=== PATIENT | male | born 1945 | race Caucasian/White ===

== ENCOUNTER 2021-02-09 03:08 | Inpatient (IN) | payer MEDICARE ==
--- NOTE | 2021-02-09 03:30 | EDM.PDOC ---
ED HPI GENERAL MEDICAL PROBLEM - General Chief Complaint: Respiratory Problem Stated Complaint: SOB VIA [facility] Time Seen by Provider: 02/09/21 03:20 Source of Information: Reports: Patient, EMS History Limitations: Reports: No Limitations - History of Present Illness INITIAL COMMENTS - FREE TEXT/NARRATIVE: pt arrived with sob and not feeling well for the past 2-3 days. He has not spiked any sig fevers. He Has been coughing up green and yellow sputum . He has a history of smoking 1.5 packs per day. He is vacinated against covid. ! week ago he had a dot examine and he passed that. Onset: Gradual, Other (last 2-3 days. ) Duration: Hour(s): Location: Reports: Chest, Generalized Associated Symptoms: Reports: Cough, Shortness of Breath, Weakness - Related Data Allergies Allergy/AdvReac Type Severity Reaction Status Date / Time Iodinated Contrast Media Allergy Hives Verified 02/09/21 03:19 Home Meds: Home Meds Tamsulosin [Flomax] 1 cap PO DAILY 02/09/21 [History] ED ROS GENERAL - Review of Systems Review Of Systems: See Below Constitutional: Reports: Malaise, Weakness HEENT: Reports: No Symptoms Respiratory: Reports: Shortness of Breath, Wheezing, Cough, Sputum Cardiovascular: Reports: No Symptoms Endocrine: Reports: No Symptoms GI/Abdominal: Reports: No Symptoms : Reports: No Symptoms Musculoskeletal: Reports: No Symptoms Skin: Reports: No Symptoms Neurological: Reports: No Symptoms Psychiatric: Reports: Anxiety ED EXAM, GENERAL - Physical Exam Exam: See Below Free Text/Narrative:: pt arrived with sob which started about 2 days ago. He is a heavy smoker but harinder not been told that he has copd He has been very wheezy today. He has been vacinated but has not had the booster shot. Exam Limited By: No Limitations General Appearance: Alert, Anxious, Moderate Distress Ears: Normal TMs Nose: Normal Inspection Throat/Mouth: Normal Inspection Head: Atraumatic Neck: Normal Inspection Respiratory/Chest: Decreased Breath Sounds, Rhonchi, Wheezing Cardiovascular: Regular Rate, Rhythm, Tachycardia GI/Abdominal: Soft, Non-Tender (Male) Exam: Deferred Rectal (Males) Exam: Deferred Back Exam: Normal Inspection Extremities: Pedal Edema Neurological: Alert, Oriented, Normal Cognition Psychiatric: Normal Mood Course - Vital Signs Last Recorded V/S: Last Vital Signs Temp 37.7 C 02/09/21 03:14 Pulse 77 02/09/21 04:12 Resp 28 H 02/09/21 04:12 BP 145/84 H 02/09/21 04:12 Pulse Ox 95 02/09/21 04:12 - Orders/Labs/Meds Orders: Active Orders 24 hr Category Date Time Status RT Aerosol Therapy [RC] ASDIRECTED Care 02/09/21 04:37 Ordered Chest 1V Frontal [CR] Stat Exams 02/09/21 03:19 Taken UA W/MICROSCOPIC [URIN] Urgent Lab 02/09/21 03:18 Ordered Sodium Chloride 0.9% [Normal Saline] 1,000 ml Med 02/09/21 04:45 Ordered IV ASDIRECTED Sodium Chloride 0.9% [Saline Flush] Med 02/09/21 03:33 Active 10 ml FLUSH ASDIRECTED PRN Isolation [COMM] Stat Oth 02/09/21 03:18 Ordered Saline Lock Insert [OM.PC] Routine Oth 02/09/21 03:33 Ordered Medication Orders Sodium Chloride (Normal Saline) 1,000 mls @ 150 mls/hr IV ASDIRECTED KAUSHAL Sodium Chloride (Sodium Chloride 0.9% 10 Ml Syringe) 10 ml FLUSH ASDIRECTED PRN PRN Reason: Keep Vein Open Labs: Laboratory Tests 02/09/21 02/09/21 02/09/21 Range/Units 03:28 03:28 03:28 WBC 7.9 (4.5-11.0) K/uL RBC 5.19 (4.30-5.90) M/uL Hgb 16.1 H (12.0-15.0) g/dL Hct 47.9 (40.0-54.0) % MCV 92 (80-98) fL MCH 31 (27-31) pg MCHC 34 (32-36) % Plt Count 220 (150-400) K/uL Neut % (Auto) 83.6 H (36-66) % Lymph % (Auto) 8.0 L (24-44) % Spencer % (Auto) 7.7 H (2-6) % Eos % (Auto) 0.4 L (2-4) % Baso % (Auto) 0.3 (0-1) % D-Dimer, Quantitative (0.0-500.0) ng/mL Sodium 134 L (140-148) mmol/L Potassium 4.1 (3.6-5.2) mmol/L Chloride 98 L (100-108) mmol/L Carbon Dioxide 26 (21-32) mmol/L Anion Gap 14.1 H (5.0-14.0) mmol/L BUN 14 (7-18) mg/dL Creatinine 1.1 (0.8-1.3) mg/dL Est Cr Clr Drug Dosing 58.02 mL/min Estimated GFR (MDRD) > 60 (>60) Glucose 106 (74-106) mg/dL Calcium 8.1 L (8.5-10.1) mg/dL Total Bilirubin 0.5 (0.2-1.0) mg/dL AST 21 (15-37) U/L ALT 22 (12-78) U/L Alkaline Phosphatase 111 (46-116) U/L NT-Pro-B Natriuret Pep (5-450) pg/mL Total Protein 6.9 (6.4-8.2) g/dL Albumin 3.5 (3.4-5.0) g/dL Globulin 3.4 (2.3-3.5) g/dL Albumin/Globulin Ratio 1.0 L (1.2-2.2) Influenza Type A RNA Negative (NEGATIVE) RSV RNA (INAAT) Positive H (NEGATIVE) Influenza Type B RNA Negative (NEGATIVE) SARS-CoV-2 RNA (ELLE) Negative (NEGATIVE) 02/09/21 02/09/21 Range/Units 03:28 03:41 WBC (4.5-11.0) K/uL RBC (4.30-5.90) M/uL Hgb (12.0-15.0) g/dL Hct (40.0-54.0) % MCV (80-98) fL MCH (27-31) pg MCHC (32-36) % Plt Count (150-400) K/uL Neut % (Auto) (36-66) % Lymph % (Auto) (24-44) % Spencer % (Auto) (2-6) % Eos % (Auto) (2-4) % Baso % (Auto) (0-1) % D-Dimer, Quantitative 668.70 H (0.0-500.0) ng/mL Sodium (140-148) mmol/L Potassium (3.6-5.2) mmol/L Chloride (100-108) mmol/L Carbon Dioxide (21-32) mmol/L Anion Gap (5.0-14.0) mmol/L BUN (7-18) mg/dL Creatinine (0.8-1.3) mg/dL Est Cr Clr Drug Dosing mL/min Estimated GFR (MDRD) (>60) Glucose (74-106) mg/dL Calcium (8.5-10.1) mg/dL Total Bilirubin (0.2-1.0) mg/dL AST (15-37) U/L ALT (12-78) U/L Alkaline Phosphatase (46-116) U/L NT-Pro-B Natriuret Pep 409 (5-450) pg/mL Total Protein (6.4-8.2) g/dL Albumin (3.4-5.0) g/dL Globulin (2.3-3.5) g/dL Albumin/Globulin Ratio (1.2-2.2) Influenza Type A RNA (NEGATIVE) RSV RNA (INAAT) (NEGATIVE) Influenza Type B RNA (NEGATIVE) SARS-CoV-2 RNA (ELLE) (NEGATIVE) Meds: Medications Generic Name Dose Route Start Last Admin Trade Name Freq PRN Reason Stop Dose Admin Sodium Chloride 1,000 mls @ 150 mls/hr 02/09/21 04:45 Normal Saline IV ASDIRECTED KAUSHAL Sodium Chloride 10 ml 02/09/21 03:33 Sodium Chloride 0.9% 10 Ml Syringe FLUSH ASDIRECTED PRN Keep Vein Open Discontinued Medications Generic Name Dose Route Start Last Admin Trade Name Freq PRN Reason Stop Dose Admin Albuterol/Ipratropium 3 ml 02/09/21 04:37 Albuterol/Ipratropium 3.0-0.5 Mg/3 Ml Neb Soln NEB 02/09/21 04:38 ONETIME ONE Methylprednisolone Sodium Succinate 125 mg 02/09/21 04:38 Methylprednisolone Sodium Succinate 125 Mg/2 Ml Sdv IVPUSH 02/09/21 04:39 ONETIME ONE - Re-Assessments/Exams Free Text/Narrative Re-Assessment/Exam: 02/09/21 03:49 pt has a wbc of 7,900. He is full vacinated. his chest xray shows chronic changes. 02/09/21 04:39 pt is covid neg. but rsv positive. Will use a neb and solumedrol. He will need to be admitted because he is not maintaining his o2 sats. Departure - Departure Time of Disposition: 04:40 Disposition: Admitted As Inpatient 66 Condition: Fair Clinical Impression: RSV (respiratory syncytial virus infection), Hypoxia - Discharge Information Referrals: Channing Bloom MD [Primary Care Provider] - Forms: ED Department Discharge Care Plan Goals: admit to Dr Horner. Sepsis Event Note (ED) - Evaluation Sepsis Screening Result: No Definite Risk - Focused Exam Vital Signs: Vital Signs Temp Pulse Resp BP Pulse Ox 02/09/21 04:12 77 28 H 145/84 H 95 02/09/21 03:43 88 28 H 156/82 H 94 L 02/09/21 03:14 37.7 C 102 H 26 H 181/98 H 82 L - My Orders Last 24 Hours: My Active Orders 02/09/21 03:18 UA W/MICROSCOPIC [URIN] Urgent Isolation [COMM] Stat 02/09/21 03:19 Chest 1V Frontal [CR] Stat 02/09/21 03:33 Sodium Chloride 0.9% [Saline Flush] 10 ml FLUSH ASDIRECTED PRN Saline Lock Insert [OM.PC] Routine 02/09/21 04:37 RT Aerosol Therapy [RC] ASDIRECTED 02/09/21 04:45 Sodium Chloride 0.9% [Normal Saline] 1,000 ml IV ASDIRECTED - Assessment/Plan Last 24 Hours: My Active Orders 02/09/21 03:18 UA W/MICROSCOPIC [URIN] Urgent Isolation [COMM] Stat 02/09/21 03:19 Chest 1V Frontal [CR] Stat 02/09/21 03:33 Sodium Chloride 0.9% [Saline Flush] 10 ml FLUSH ASDIRECTED PRN Saline Lock Insert [OM.PC] Routine 02/09/21 04:37 RT Aerosol Therapy [RC] ASDIRECTED 02/09/21 04:45 Sodium Chloride 0.9% [Normal Saline] 1,000 ml IV ASDIRECTED
[2021-02-09] MEDS ORDERED: Sodium Chloride 0.9% 10 ML Syringe FLUSH PRN (03:33)
[2021-02-09 04:07] LABS: CORONAVIRUS COVID-19 NAA NEGATIVE (NEGATIVE)
[2021-02-09] MEDS ORDERED: Albuterol/Ipratropium 3.0-0.5 MG/3 ML Neb Soln NEB ONE (04:37)
[2021-02-09] MEDS ORDERED: methylPREDNISolone Sodium Succinate 125 MG/2 ML SDV IVPUSH ONE (04:38)
[2021-02-09] MEDS ORDERED: Sodium Chloride 0.9% 1,000 ML IV SCH (04:45)
--- NOTE | 2021-02-09 04:56 | CRLCR ---
For Patients: As a result of the Century Cures Act, medical imaging exams and procedure reports are released immediately into your electronic medical record. You may view this report before your referring provider. If you have questions, please contact your health care provider. INDICATION: Shortness of breath. TECHNIQUE: Chest 1 view. COMPARISON: None. FINDINGS: Cardiovascular and mediastinum: Heart size and vasculature are normal in caliber and appearance. Lungs and pleural spaces: Lungs are clear. No sign of infiltrate or mass. No sign of pleural effusion. No pneumothorax. Bones and soft tissues: No significant findings. IMPRESSION: No acute or significant findings. Dictated by Rickie Ohara MD @ 02/09/2021 4:55:10 AM (Electronically Signed)
[2021-02-09] MEDS ORDERED: Albuterol/Ipratropium 3.0-0.5 MG/3 ML Neb Soln NEB PRN (05:14)
[2021-02-09] MEDS ORDERED: Acetaminophen 325 MG Tab PO PRN (05:14)
[2021-02-09] MEDS ORDERED: cefTRIAXone 1 GM Vial IM SCH (05:15)
[2021-02-09] MEDS ORDERED: Albuterol/Ipratropium 4 GM Inhalation Spray INH PRN (05:38)
[2021-02-09] MEDS ORDERED: cefTRIAXone 1 GM Vial IV SCH (06:03)
--- NOTE | 2021-02-09 06:58 | HP ---
IDENTIFYING DATA: Capo Huddleston is a 75-year-old male from [place]. CHIEF COMPLAINT: Short of breath. HISTORY OF PRESENT ILLNESS: Adult male who reports general good state of health. Has an approximate 2-day history of developing respiratory symptoms with congestion, cough, scant sputum production, and increased shortness of breath. Symptoms worsened significantly overnight and he presented to the hospital this morning for evaluation. He has a longstanding history of tobacco use of 1-1/2 packs per day, though denies previous diagnosed history of obstructive pulmonary disease or limiting respiratory symptoms. He has received his COVID vaccine series. Has not yet received his annual influenza vaccine. It was noted he was hunting with extended family over the weekend. Two adult sons had similar acute respiratory infections with potential exposure to these individuals. PAST MEDICAL HISTORY: Previous surgeries include inguinal herniorrhaphy in the remote past and appendectomy 2 years ago. Additionally, he has a history of BPH with weakened urinary stream, managed with use of tamsulosin 0.4 mg daily. No other chronic health problems reported. HABITS: Tobacco use of 1-1/2 packs per day. Caffeine intake averages 2 large mugs of coffee daily. Alcohol use estimated at 10 drinks weekly. 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 SOCIAL HISTORY: . A full-time employee for a [employer]. Working as a long distance hauler. Engages in moderately strenuous physical activities at home. Denying significant restrictions or limitations. No known recent COVID exposure reporting his adult sons tested negative for COVID. FAMILY HISTORY: As above, otherwise noncontributory. REVIEW OF SYSTEMS: NEUROLOGIC: Does have recognized decline in auditory acuity. Glasses are worn for far vision and reading. No history of stroke, seizures, focal weakness, or paresthesias. CARDIAC: Denies hypertension, diabetes, congenital heart disease, rheumatic fever, [place], chest pain, palpitations, or congestive heart failure. No dependent edema. RESPIRATORY: As above. No hemoptysis. Scant sputum production reported. No sore throat, nasal congestion, or coryza. GI: Denies chronic dyspepsia, nausea, emesis, altered appetite, change in smell or taste, hepatobiliary disease, or bowel changes. : Rises 2 to 4 times nightly to void. No urinary incontinence. Denies chronic renal disease. MUSCULOSKELETAL: Without arthralgias. PHYSICAL EXAMINATION: GENERAL: Appearance is that of an adult male in mild distress secondary to respiratory presentation. VITAL SIGNS: Initial vitals, temperature 37.7 degrees centigrade, pulse 77, respiratory rate 28 with O2 sats initially in the low 80s, rising to 95% with supplemental oxygen at 4 L by nasal cannula, blood pressure 145/84. HEENT: Hearing is slightly diminished. Canals and TMs are normal. Pupils reactive to light. Sclerae anicteric. No oropharyngeal lesions. No facial asymmetry. Speech is clear. NECK: No adenopathy, thyromegaly, or JVD. Brisk carotid pulses. No bruits. LUNGS: Symmetrical, tachypneic. Prominent bilateral expiratory wheezes and rhonchi. No rales are heard today. HEART: Regular without murmurs or gallops. Normal S1 and S2. ABDOMEN: Obese, soft, nontender, nondistended. Active sounds. No obvious organomegaly. No CVA pain, guarding, or tenderness. Good femoral pulses. : Omitted. RECTAL: Omitted. EXTREMITIES: No pitting edema. SKIN: Warm, pink, and dry. No ischemic skin changes. Good radial and posterior tibial pulses noted. DIAGNOSTIC DATA: Chest x-ray on admission, interstitial perihilar changes noted. LABORATORY DATA: WBC 7.9, hemoglobin 16.1, hematocrit 47.9, platelet count 220,000. Sodium 134, potassium 4.1, creatinine 1.1, GFR greater than 60. Glucose 106. Liver functions within normal range. Influenza screen negative as is COVID testing. RSV is positive. D- dimer moderately elevated at 668. BNP 409. IMPRESSION: 1. Acute respiratory infection, positive respiratory syncytial virus testing, negative coronavirus disease and influenza. 2. Chronic tobacco use of 1-1/2 packs per day. PLAN: With the patient's presenting hypoxia, initial treatments with oxygen and bronchodilator therapies have been provided as has first dose of IV steroids. We will continue with Solu-Medrol administered on a t.i.d. schedule. Provide Combivent metered dose inhaler q.4 hours as needed. We will empirically initiate antibiotic therapy for potential community-acquired pneumonia with Rocephin. Anticipate repeat COVID testing in 2 days to include the possibility of early false negatives. Full code status. Regular diet and activity as tolerated in room will be allowed during stay. No other acute or chronic health problems currently identified. Camilo Horner MD /[id number]
[2021-02-09] MEDS ORDERED: cefTRIAXone 1 GM in Sodium Chloride 0.9% 50 ML IV SCH (07:00)
[2021-02-09] MEDS: cefTRIAXone 1 GM in Sodium Chloride 0.9% 50 ML IV SCH (08:16)
[2021-02-09] MEDS: methylPREDNISolone Sodium Succinate 125 MG/2 ML SDV IVPUSH SCH ×2 (13:13→21:08)
[2021-02-09] MEDS ORDERED: guaiFENesin/Dextromethorphan 100-10 MG/5 ML Soln 10 ML Cup PO PRN (13:58)
[2021-02-09] MEDS ORDERED: Benzonatate 100 MG Cap PO PRN (13:58)
[2021-02-09] MEDS ORDERED: methylPREDNISolone Sodium Succinate 125 MG/2 ML SDV IVPUSH SCH (14:00)
[2021-02-09] MEDS: Albuterol/Ipratropium 3.0-0.5 MG/3 ML Neb Soln NEB SCH ×2 (14:32→21:08)
[2021-02-09] MEDS: Tamsulosin 0.4 MG Cap.ER PO SCH (14:41)
[2021-02-09] MEDS ORDERED: Albuterol 0.083% 2.5 MG/3 ML Neb Soln NEB PRN (16:28)
[2021-02-09] MEDS ORDERED: Nicotine 14 MG/24 Hr Patch TRDERM ONE (17:00)
[2021-02-10] MEDS: methylPREDNISolone Sodium Succinate 125 MG/2 ML SDV IVPUSH SCH ×3 (05:45→22:18)
[2021-02-10] MEDS ORDERED: cefTRIAXone 1 GM in Sodium Chloride 0.9% 50 ML IV SCH (07:00)
[2021-02-10] MEDS: Albuterol/Ipratropium 3.0-0.5 MG/3 ML Neb Soln NEB SCH ×4 (07:14→22:10)
[2021-02-10] MEDS: Nicotine 14 MG/24 Hr Patch TRDERM SCH (09:40)
[2021-02-10] MEDS: Tamsulosin 0.4 MG Cap.ER PO SCH (09:40)
[2021-02-10] MEDS: cefTRIAXone 1 GM in Sodium Chloride 0.9% 50 ML IV SCH (09:42)
--- NOTE | 2021-02-10 13:09 | PCM.PN ---
- General Info Date of Service: 02/10/21 Subjective Update: No acute events overnight. Patient feels less short of breath today. He has not noticed any wheezing. He is down to 4 L of supplemental oxygen this morning. Appetite has improved. Cough has decreased. No significant sputum. No fevers. Functional Status: Reports: Pain Controlled, Tolerating Diet - Review of Systems Pulmonary: Reports: Shortness of Breath, Cough - Patient Data Vitals - Most Recent: Last Vital Signs Temp 36.5 C 02/10/21 11:00 Pulse 79 02/10/21 11:00 Resp 18 02/10/21 11:00 BP 149/66 H 02/10/21 11:00 Pulse Ox 91 L 02/10/21 11:00 Weight - Most Recent: 96.615 kg I&O - Last 24 Hours: Intake & Output 02/09/21 02/10/21 02/10/21 22:59 06:59 14:59 Intake Total 270 300 730 Balance 270 300 730 Med Orders - Current: Current Medications Acetaminophen (Acetaminophen 325 Mg Tab) 650 mg PO Q4H PRN PRN Reason: Fever Albuterol (Albuterol 0.083% 2.5 Mg/3 Ml Neb Soln) 2.5 mg NEB Q2H PRN PRN Reason: shortness of breath/wheezing Last Admin: 02/09/21 16:39 Dose: 2.5 mg Documented by: Albuterol/Ipratropium (Albuterol/Ipratropium 3.0-0.5 Mg/3 Ml Neb Soln) 3 ml NEB QIDRT [facility] Last Admin: 02/10/21 11:09 Dose: 3 ml Documented by: Benzonatate (Benzonatate 100 Mg Cap) 100 mg PO Q8H PRN PRN Reason: Cough Guaifenesin/Dextromethorphan (Guaifenesin/Dextromethorphan 100-10 Mg/5 Ml Soln 10 Ml Cup) 10 ml PO Q4H PRN PRN Reason: Cough Ceftriaxone Sodium 1 gm/ (Sodium Chloride) 50 mls @ 100 mls/hr IV Q24H [facility] Last Admin: 02/10/21 09:42 Dose: 100 mls/hr Documented by: Methylprednisolone Sodium Succinate (Methylprednisolone Sodium Succinate 125 Mg/2 Ml Sdv) 62.5 mg IVPUSH Q8HR [facility] Last Admin: 02/10/21 05:45 Dose: 62.5 mg Documented by: Nicotine (Nicotine 14 Mg/24 Hr Patch) 14 mg TRDERM DAILY [facility] Last Admin: 02/10/21 09:40 Dose: 14 mg Documented by: Sodium Chloride (Sodium Chloride 0.9% 10 Ml Syringe) 10 ml FLUSH ASDIRECTED PRN PRN Reason: Keep Vein Open Last Admin: 02/09/21 05:04 Dose: 10 ml Documented by: Tamsulosin HCl (Tamsulosin 0.4 Mg Cap.Er) 0.4 mg PO DAILY [facility] Last Admin: 02/10/21 09:40 Dose: 0.4 mg Documented by: Discontinued Medications Albuterol/Ipratropium (Albuterol/Ipratropium 3.0-0.5 Mg/3 Ml Neb Soln) 3 ml NEB ONETIME ONE Stop: 02/09/21 04:38 Last Admin: 02/09/21 04:49 Dose: 3 ml Documented by: Albuterol/Ipratropium (Albuterol/Ipratropium 3.0-0.5 Mg/3 Ml Neb Soln) 3 ml NEB Q4H PRN PRN Reason: Dyspnea Albuterol/Ipratropium (Albuterol/Ipratropium 4 Gm Inhalation [place]) 0 gm INH Q4H PRN PRN Reason: Dyspnea Last Admin: 02/09/21 11:18 Dose: 1 puff Documented by: Ceftriaxone Sodium (Ceftriaxone 1 Gm Vial) 1 gm IM Q24H [facility] Last Admin: 02/09/21 06:05 Dose: Not Given Documented by: Ceftriaxone Sodium (Ceftriaxone 1 Gm Vial) 1 gm IV Q24H [facility] Last Admin: 02/09/21 06:05 Dose: Not Given Documented by: Sodium Chloride (Normal Saline) 1,000 mls @ 150 mls/hr IV ASDIRECTED [facility] Last Admin: 02/09/21 04:49 Dose: 150 mls/hr Documented by: Ceftriaxone Sodium 1 gm/ (Sodium Chloride) 50 mls @ 100 mls/hr IV Q24H [facility] Ceftriaxone Sodium 1 gm/ (Sodium Chloride) 50 mls @ 100 mls/hr IV Q24H [facility] Methylprednisolone Sodium Succinate (Methylprednisolone Sodium Succinate 125 Mg/2 Ml Sdv) 125 mg IVPUSH ONETIME ONE Stop: 02/09/21 04:39 Last Admin: 02/09/21 04:49 Dose: 125 mg Documented by: Methylprednisolone Sodium Succinate (Methylprednisolone Sodium Succinate 125 Mg/2 Ml Sdv) 125 mg IVPUSH Q8HR KAUSHAL Nicotine (Nicotine 14 Mg/24 Hr Patch) 14 mg TRDERM ONETIME ONE Stop: 02/09/21 17:01 Last Admin: 02/09/21 16:39 Dose: 14 mg Documented by: - Exam Quality Assessment: Supplemental Oxygen General: Alert, Oriented, Cooperative, No Acute Distress Lungs: Normal Respiratory Effort, Crackles (few right mid lung ), Rhonchi (left mid and upper lung). No: Wheezing Cardiovascular: Regular Rate, Regular Rhythm GI/Abdominal Exam: Soft, No Distention Extremities: No Pedal Edema. No: Increased Warmth Skin: Warm, Dry Psy/Mental Status: Alert, Normal Affect - Patient Data Result Diagrams: 02/09/21 03:28 02/09/21 03:28 Sepsis Event Note - Evaluation Sepsis Screening Result: No Definite Risk - Focused Exam Vital Signs: Vital Signs Temp Pulse Resp BP Pulse Ox 02/10/21 11:00 36.5 C 79 18 149/66 H 91 L 02/10/21 07:47 35.3 C L 69 18 182/77 H 93 L 02/10/21 07:18 95 02/10/21 03:07 35.8 C L 58 L 18 143/71 H 93 L 02/10/21 01:37 93 L - Problem List Review Problem List Initiated/Reviewed/Updated: Yes - My Orders Last 24 Hours: My Active Orders 02/09/21 13:58 Benzonatate [Tessalon Perles] 100 mg PO Q8H PRN Dextromethorphan/guaiFENesin [Robitussin DM] 10 ml PO Q4H PRN 02/09/21 13:59 Convert IV to Saline Lock [OM.PC] Routine 02/09/21 14:00 Tamsulosin [Flomax] 0.4 mg PO DAILY methylPREDNISolone Sod Succ [Solu-MEDROL] 62.5 mg IVPUSH Q8HR 02/09/21 15:00 Albuterol/Ipratropium [DuoNeb 3.0-0.5 MG/3 ML] 3 ml NEB QIDRT 02/09/21 16:28 Albuterol [Proventil Neb Soln] 2.5 mg NEB Q2H PRN 02/09/21 19:21 SCD [Sequential Compression Device] [OM.PC] Routine 02/10/21 09:00 Nicotine [Habitrol] 14 mg TRDERM DAILY 02/11/21 08:00 predniSONE 40 mg PO WITHBREAKFAST - Plan Plan:: ASSESSMENT AND PLAN - Acute RSV bronchitis-complicated by acute respiratory failure with hypoxia and COPD exacerbation. Still hypoxic but slowly improving. Wheezing has resolved. Tolerating medication so far. -Continue steroids today, transition to oral prednisone tomorrow -Discontinue antibiotics -Scheduled and as needed nebulizers -Continue isolation precautions for RSV -Supplement oxygen, wean as able Essential hypertension-some ups and downs with his blood pressure but overall control is acceptable. -Continue home medications Tobacco dependence-longstanding smoker. -Encourage cessation Maintenance issues - -DVT prophylaxis-enoxaparin -GI prophylaxis-not indicated -Nutrition-regular Disposition -I anticipate discharge home after the hospital stay Dion Ceballos M.D.
[2021-02-11] MEDS: Albuterol/Ipratropium 3.0-0.5 MG/3 ML Neb Soln NEB SCH ×4 (07:24→21:58)
[2021-02-11] MEDS: Tamsulosin 0.4 MG Cap.ER PO SCH (08:12)
[2021-02-11] MEDS: Nicotine 14 MG/24 Hr Patch TRDERM SCH (08:12)
[2021-02-11] MEDS: predniSONE 20 MG Tab PO SCH (08:12)
--- NOTE | 2021-02-11 13:22 | PCM.PN ---
- General Info Date of Service: 02/11/21 Subjective Update: No acute events overnight. We have seen a steady improvement in his respiratory status. He was weaned down to 1 L of oxygen this morning. Symptomatically he i s feeling better with less shortness of breath. Cough is minimal. He has not noticed any wheezing. He feels he is breathing much more comfortably. Appetite is good. Strength improving. Functional Status: Reports: Pain Controlled, Tolerating Diet - Review of Systems General: Denies: Fever - Patient Data Vitals - Most Recent: Last Vital Signs Temp 36.5 C 02/11/21 11:00 Pulse 61 02/11/21 11:00 Resp 18 02/11/21 11:00 BP 144/80 H 02/11/21 11:00 Pulse Ox 92 L 02/11/21 12:14 Weight - Most Recent: 96.615 kg I&O - Last 24 Hours: Intake & Output 02/10/21 02/11/21 02/11/21 22:59 06:59 14:59 Intake Total 840 1370 Balance 840 1370 Med Orders - Current: Current Medications Acetaminophen (Acetaminophen 325 Mg Tab) 650 mg PO Q4H PRN PRN Reason: Fever Albuterol (Albuterol 0.083% 2.5 Mg/3 Ml Neb Soln) 2.5 mg NEB Q2H PRN PRN Reason: shortness of breath/wheezing Last Admin: 02/09/21 16:39 Dose: 2.5 mg Documented by: Albuterol/Ipratropium (Albuterol/Ipratropium 3.0-0.5 Mg/3 Ml Neb Soln) 3 ml NEB QIDRT [facility] Last Admin: 02/11/21 10:46 Dose: 3 ml Documented by: Benzonatate (Benzonatate 100 Mg Cap) 100 mg PO Q8H PRN PRN Reason: Cough Guaifenesin/Dextromethorphan (Guaifenesin/Dextromethorphan 100-10 Mg/5 Ml Soln 10 Ml Cup) 10 ml PO Q4H PRN PRN Reason: Cough Nicotine (Nicotine 14 Mg/24 Hr Patch) 14 mg TRDERM DAILY [facility] Last Admin: 02/11/21 08:12 Dose: 14 mg Documented by: Prednisone (Prednisone 20 Mg Tab) 40 mg PO WITHBREAKFAST [facility] Last Admin: 02/11/21 08:12 Dose: 40 mg Documented by: Sodium Chloride (Sodium Chloride 0.9% 10 Ml Syringe) 10 ml FLUSH ASDIRECTED PRN PRN Reason: Keep Vein Open Last Admin: 02/09/21 05:04 Dose: 10 ml Documented by: Tamsulosin HCl (Tamsulosin 0.4 Mg Cap.Er) 0.4 mg PO DAILY [facility] Last Admin: 02/11/21 08:12 Dose: 0.4 mg Documented by: Discontinued Medications Albuterol/Ipratropium (Albuterol/Ipratropium 3.0-0.5 Mg/3 Ml Neb Soln) 3 ml NEB ONETIME ONE Stop: 02/09/21 04:38 Last Admin: 02/09/21 04:49 Dose: 3 ml Documented by: Albuterol/Ipratropium (Albuterol/Ipratropium 3.0-0.5 Mg/3 Ml Neb Soln) 3 ml NEB Q4H PRN PRN Reason: Dyspnea Albuterol/Ipratropium (Albuterol/Ipratropium 4 Gm Inhalation [place]) 0 gm INH Q4H PRN PRN Reason: Dyspnea Last Admin: 02/09/21 11:18 Dose: 1 puff Documented by: Ceftriaxone Sodium (Ceftriaxone 1 Gm Vial) 1 gm IM Q24H [facility] Last Admin: 02/09/21 06:05 Dose: Not Given Documented by: Ceftriaxone Sodium (Ceftriaxone 1 Gm Vial) 1 gm IV Q24H [facility] Last Admin: 02/09/21 06:05 Dose: Not Given Documented by: Sodium Chloride (Normal Saline) 1,000 mls @ 150 mls/hr IV ASDIRECTED [facility] Last Admin: 02/09/21 04:49 Dose: 150 mls/hr Documented by: Ceftriaxone Sodium 1 gm/ (Sodium Chloride) 50 mls @ 100 mls/hr IV Q24H [facility] Ceftriaxone Sodium 1 gm/ (Sodium Chloride) 50 mls @ 100 mls/hr IV Q24H [facility] Ceftriaxone Sodium 1 gm/ (Sodium Chloride) 50 mls @ 100 mls/hr IV Q24H [facility] Last Admin: 02/10/21 09:42 Dose: 100 mls/hr Documented by: Methylprednisolone Sodium Succinate (Methylprednisolone Sodium Succinate 125 Mg/2 Ml Sdv) 125 mg IVPUSH ONETIME ONE Stop: 02/09/21 04:39 Last Admin: 02/09/21 04:49 Dose: 125 mg Documented by: Methylprednisolone Sodium Succinate (Methylprednisolone Sodium Succinate 125 Mg/2 Ml Sdv) 125 mg IVPUSH Q8HR [facility] Methylprednisolone Sodium Succinate (Methylprednisolone Sodium Succinate 125 Mg/2 Ml Sdv) 62.5 mg IVPUSH Q8HR [facility] Stop: 02/11/21 04:00 Last Admin: 02/10/21 22:18 Dose: 62.5 mg Documented by: Nicotine (Nicotine 14 Mg/24 Hr Patch) 14 mg TRDERM ONETIME ONE Stop: 02/09/21 17:01 Last Admin: 02/09/21 16:39 Dose: 14 mg Documented by: - Exam Quality Assessment: No: Supplemental Oxygen General: Alert, Oriented, Cooperative, No Acute Distress Lungs: Normal Respiratory Effort, Crackles (rare right lower lung ), Wheezing (rare right lower lung ) Cardiovascular: Regular Rate, Regular Rhythm GI/Abdominal Exam: Soft, No Distention Extremities: No Pedal Edema. No: Increased Warmth Skin: Warm, Dry Psy/Mental Status: Alert, Normal Affect - Patient Data Result Diagrams: 02/09/21 03:28 02/09/21 03:28 Sepsis Event Note - Evaluation Sepsis Screening Result: No Definite Risk - Focused Exam Vital Signs: Vital Signs Temp Pulse Resp BP Pulse Ox 02/11/21 12:14 92 L 02/11/21 11:00 36.5 C 61 18 144/80 H 92 L 02/11/21 10:47 74 02/11/21 07:30 36.3 C 62 18 165/81 H 96 02/11/21 07:25 68 02/11/21 03:00 35.4 C L 62 18 163/77 H 93 L - Problem List Review Problem List Initiated/Reviewed/Updated: Yes - My Orders Last 24 Hours: My Active Orders 02/11/21 08:00 predniSONE 40 mg PO WITHBREAKFAST - Plan Plan:: ASSESSMENT AND PLAN - Acute RSV bronchitis-complicated by acute respiratory failure with hypoxia and COPD exacerbation. Slowly improving. Tolerating treatment. -Continue prednisone (day 3) -Scheduled and as needed nebulizers -Continue isolation precautions for RSV -Supplement oxygen, wean as able Essential hypertension-some ups and downs with his blood pressure but overall control is acceptable. -Continue home medications Tobacco dependence-longstanding smoker. -Encourage cessation Maintenance issues - -DVT prophylaxis-enoxaparin -GI prophylaxis-not indicated -Nutrition-regular Disposition -I anticipate discharge home after the hospital stay, likely tomorrow if stable overnight Dion Ceballos M.D.
[2021-02-12] MEDS: Albuterol/Ipratropium 3.0-0.5 MG/3 ML Neb Soln NEB SCH ×2 (07:11→10:41)
[2021-02-12] MEDS: predniSONE 20 MG Tab PO SCH (07:43)
[2021-02-12] MEDS: Nicotine 14 MG/24 Hr Patch TRDERM SCH (09:07)
[2021-02-12] MEDS: Tamsulosin 0.4 MG Cap.ER PO SCH (09:07)
--- NOTE | 2021-02-12 10:58 | PCM.DCSUM1 ---
Discharge Summary - Hospital Course Brief History: 75-year-old male with history of tobacco dependence who presented with cough, shortness of breath and weakness. He was admitted for management of RSV bronchitis with a COPD exacerbation and hypoxic respiratory failure. Diagnosis: Stroke: No - Discharge Data Discharge Date: 02/12/21 Discharge Disposition: Home, Self-Care 01 Condition: Good - Referral to Home Health Primary Care Physician: Channing Bloom MD - Discharge Diagnosis/Problem(s) (1) COPD with acute exacerbation SNOMED Code(s): 679146437 ICD Code: J44.1 - CHRONIC OBSTRUCTIVE PULMONARY DISEASE W (ACUTE) EXACERBATION Status: Acute (2) RSV (respiratory syncytial virus infection) SNOMED Code(s): 85457987 ICD Code: B97.4 - RESPIRATORY SYNCYTIAL VIRUS CAUSING DISEASES CLASSD ELSWHR Status: Acute (3) Tobacco dependence SNOMED Code(s): 16409233 ICD Code: F17.200 - NICOTINE DEPENDENCE, UNSPECIFIED, UNCOMPLICATED Status: Chronic - Patient Summary/Data Hospital Course: Capo presented to the emergency room with increasing cough, shortness of breath and weakness. Work-up in the emergency room suggested acute respiratory failure with hypoxia. Viral testing was positive for RSV and negative for COVID-19. Chest x-ray did not show any acute infiltrates. Patient was admitted to the hospital for management of RSV bronchitis and a COPD exacerbation. He was started on IV steroids. Initially he was started on IV antibiotics as well. Over the first 24 hours we did see improvement in his oxygenation. Were able to wean his supplemental oxygen down from more than 6 L down to 4 to 5 L. Symptomatically he was feeling better but still had a fair amount of wheezing. We did continue antibiotics for about the first 36 hours but then they were discontinued when cultures failed to reveal a bacterial cause and it was felt that his COPD exacerbation was related just to the RSV infection. He had further clinical improvement with resolution of his wheezing. We are able to wean down the supplemental oxygen and eventually wean him off of the oxygen. Clinically he feels much better. He was able to walk without any respiratory limitations. He has felt better each day. He feels well enough to go home at this time. He has completed 4 days of high-dose steroids. His wheezing has resolved so we are going to avoid any additional steroids at the time of discharge. He was not interested in any cough suppressants at the time of discharge. He will be following up as needed if symptoms do not continue to get better or if they get worse. Patient was interested in setting up pulmonary function testing to get a formal diagnosis of COPD if it is present. He is interested in completing this in March of next year, about 2 months from now. Outpatient orders were completed prior to his discharge. He will be following up with his primary care provider after he has completed this test. - Patient Instructions Diet: Regular Diet as Tolerated Activity: As Tolerated Driving: May Drive Today Showering/Bathing: May Shower Other/Special Instructions: 1. You were in the hospital for management of an RSV infection of your upper respiratory tract that resulted in an exacerbation of COPD. Your condition has been improving with steroid therapy as well as bronchodilator therapy and supplemental oxygen. There is no additional therapy needed at this time. You may increase your activity as tolerated. I would encourage you to cut down and hopefully eventually quit smoking. This can help improve your lung function and reduce your risk of cardiovascular disease as well as a variety of cancers. 2. I have completed paperwork for pulmonary function testing. This information will be passed along to the respiratory therapy folks and they will contact you to schedule this. It is reasonable to wait until you have an opportunity in March to complete this so you have time to recover from your current infection completely. - Discharge Plan *PRESCRIPTION DRUG MONITORING PROGRAM REVIEWED*: Not Applicable *COPY OF PRESCRIPTION DRUG MONITORING REPORT IN PATIENT BEBO: Not Applicable Tobacco Cessation Medication: Prescription Refused Home Medications: Home Meds Tamsulosin [Flomax] 1 cap PO DAILY 02/09/21 [History] Patient Handouts: Hypoxia, Fall Prevention in the Home, Adult, [id number], Respiratory Syncytial Virus Infection, Adult Referrals: Channing Bloom MD [Primary Care Provider] - (f/u as needed ) - Discharge Summary/Plan Comment DC Time >30 min.: No Total # of Minutes for Discharge Time: 25 - Patient Data Vitals - Most Recent: Last Vital Signs Temp 36.6 C 02/12/21 07:00 Pulse 59 L 02/12/21 07:00 Resp 16 02/12/21 07:00 BP 172/89 H 02/12/21 07:00 Pulse Ox 93 L 02/12/21 07:49 Weight - Most Recent: 96.615 kg I&O - Last 24 hours: Intake & Output 02/11/21 02/12/21 02/12/21 22:59 06:59 14:59 Intake Total 880 740 Balance 880 740 Med Orders - Current: Current Medications Acetaminophen (Acetaminophen 325 Mg Tab) 650 mg PO Q4H PRN PRN Reason: Fever Albuterol (Albuterol 0.083% 2.5 Mg/3 Ml Neb Soln) 2.5 mg NEB Q2H PRN PRN Reason: shortness of breath/wheezing Last Admin: 02/09/21 16:39 Dose: 2.5 mg Documented by: Albuterol/Ipratropium (Albuterol/Ipratropium 3.0-0.5 Mg/3 Ml Neb Soln) 3 ml NEB QIDRT [facility] Last Admin: 02/12/21 10:41 Dose: 3 ml Documented by: Benzonatate (Benzonatate 100 Mg Cap) 100 mg PO Q8H PRN PRN Reason: Cough Guaifenesin/Dextromethorphan (Guaifenesin/Dextromethorphan 100-10 Mg/5 Ml Soln 10 Ml Cup) 10 ml PO Q4H PRN PRN Reason: Cough Nicotine (Nicotine 14 Mg/24 Hr Patch) 14 mg TRDERM DAILY [facility] Last Admin: 02/12/21 09:07 Dose: 14 mg Documented by: Prednisone (Prednisone 20 Mg Tab) 40 mg PO WITHBREAKFAST [facility] Last Admin: 02/12/21 07:43 Dose: 40 mg Documented by: Sodium Chloride (Sodium Chloride 0.9% 10 Ml Syringe) 10 ml FLUSH ASDIRECTED PRN PRN Reason: Keep Vein Open Last Admin: 02/09/21 05:04 Dose: 10 ml Documented by: Tamsulosin HCl (Tamsulosin 0.4 Mg Cap.Er) 0.4 mg PO DAILY [facility] Last Admin: 02/12/21 09:07 Dose: 0.4 mg Documented by: Discontinued Medications Albuterol/Ipratropium (Albuterol/Ipratropium 3.0-0.5 Mg/3 Ml Neb Soln) 3 ml NEB ONETIME ONE Stop: 02/09/21 04:38 Last Admin: 02/09/21 04:49 Dose: 3 ml Documented by: Albuterol/Ipratropium (Albuterol/Ipratropium 3.0-0.5 Mg/3 Ml Neb Soln) 3 ml NEB Q4H PRN PRN Reason: Dyspnea Albuterol/Ipratropium (Albuterol/Ipratropium 4 Gm Inhalation [place]) 0 gm INH Q4H PRN PRN Reason: Dyspnea Last Admin: 02/09/21 11:18 Dose: 1 puff Documented by: Ceftriaxone Sodium (Ceftriaxone 1 Gm Vial) 1 gm IM Q24H [facility] Last Admin: 02/09/21 06:05 Dose: Not Given Documented by: Ceftriaxone Sodium (Ceftriaxone 1 Gm Vial) 1 gm IV Q24H [facility] Last Admin: 02/09/21 06:05 Dose: Not Given Documented by: Sodium Chloride (Normal Saline) 1,000 mls @ 150 mls/hr IV ASDIRECTED [facility] Last Admin: 02/09/21 04:49 Dose: 150 mls/hr Documented by: Ceftriaxone Sodium 1 gm/ (Sodium Chloride) 50 mls @ 100 mls/hr IV Q24H [facility] Ceftriaxone Sodium 1 gm/ (Sodium Chloride) 50 mls @ 100 mls/hr IV Q24H [facility] Ceftriaxone Sodium 1 gm/ (Sodium Chloride) 50 mls @ 100 mls/hr IV Q24H [facility] Last Admin: 02/10/21 09:42 Dose: 100 mls/hr Documented by: Methylprednisolone Sodium Succinate (Methylprednisolone Sodium Succinate 125 Mg/2 Ml Sdv) 125 mg IVPUSH ONETIME ONE Stop: 02/09/21 04:39 Last Admin: 02/09/21 04:49 Dose: 125 mg Documented by: Methylprednisolone Sodium Succinate (Methylprednisolone Sodium Succinate 125 Mg/2 Ml Sdv) 125 mg IVPUSH Q8HR [facility] Methylprednisolone Sodium Succinate (Methylprednisolone Sodium Succinate 125 Mg/2 Ml Sdv) 62.5 mg IVPUSH Q8HR [facility] Stop: 02/11/21 04:00 Last Admin: 02/10/21 22:18 Dose: 62.5 mg Documented by: Nicotine (Nicotine 14 Mg/24 Hr Patch) 14 mg TRDERM ONETIME ONE Stop: 02/09/21 17:01 Last Admin: 02/09/21 16:39 Dose: 14 mg Documented by:
== END 2021-02-12 13:08 | disposition home or self-care (01) | DRG 189 ==
LOC: JP.ED 03:08 → JP.2SS 04:57 → JP.MS 02-10 15:38
PROVIDERS: ADMIT Family Medicine; ATTEND Internal Medicine
DX: B97.4 Respiratory syncytial virus as the cause of diseases classified elsewhere (principal); R09.02 Hypoxemia; Z87.891 Personal history of nicotine dependence; J96.01 Acute respiratory failure with hypoxia; J44.1 Chronic obstructive pulmonary disease with (acute) exacerbation; J44.0 Chronic obstructive pulmonary disease with (acute) lower respiratory infection; Z91.041 Radiographic dye allergy status; F17.210 Nicotine dependence, cigarettes, uncomplicated; J20.5 Acute bronchitis due to respiratory syncytial virus; N40.1 Benign prostatic hyperplasia with lower urinary tract symptoms; R39.12 Poor urinary stream; I10 Essential (primary) hypertension; Z20.822 Contact with and (suspected) exposure to COVID-19; Z79.899 Other long term (current) drug therapy; Z91.09 Other allergy status, other than to drugs and biological substances
CPT/HCPCS: 0241U; 36415; 71045; 80053; 81001; 83880; 85025; 85379; 94640; 94762; 96374; 99285; A9270-GY; J0696; J2930; J7030; J7512; J7620-GY

== ENCOUNTER 2021-05-29 07:23 | Day surgery (SDC) | payer MEDICARE ==
[2021-05-29] MEDS ORDERED: fentaNYL 100 MCG/2 ML SDV ONE (07:33)
[2021-05-29] MEDS ORDERED: Midazolam 1 MG/ML 2 ML SDV ONE (07:33)
[2021-05-29] MEDS ORDERED: Propofol 200 MG/20 ML SDV ONE (07:33)
[2021-05-29] MEDS ORDERED: Sodium Chloride 0.9% 1,000 ML IV SCH (08:00)
== END 2021-05-29 11:16 | disposition home or self-care (01) ==
LOC: JP.SDS 07:23
PROVIDERS: ATTEND Surgery
DX: Z12.11 Encounter for screening for malignant neoplasm of colon (principal); D12.5 Benign neoplasm of sigmoid colon; K62.1 Rectal polyp; Z88.8 Allergy status to other drugs, medicaments and biological substances
CPT/HCPCS: 88305; J2250; J2704; J3010; J7030

== ENCOUNTER 2022-03-07 11:13 | Observation (INO) | payer OTHER, MEDICARE ==
[2022-03-07] MEDS ORDERED: Albuterol/Ipratropium 3.0-0.5 MG/3 ML Neb Soln NEB ONE (11:47)
[2022-03-07] MEDS ORDERED: Albuterol/Ipratropium 3.0-0.5 MG/3 ML Neb Soln ONE (11:52)
[2022-03-07] MEDS ORDERED: methylPREDNISolone Sodium Succinate 125 MG/2 ML SDV IVPUSH ONE (12:17)
[2022-03-07 12:35] LABS: CORONAVIRUS COVID-19 NAA NEGATIVE (NEGATIVE)
[2022-03-07 12:50] LABS: ESTIMATED GFR 70 mL/min (>60)
[2022-03-07] MEDS ORDERED: LORazepam 2 MG/ML SDV IVPUSH PRN ×2 (13:22→13:27)
[2022-03-07] MEDS ORDERED: Ondansetron 4 MG/2 ML SDV IV PRN ×2 (13:22→13:27)
[2022-03-07] MEDS ORDERED: Ondansetron 4 MG Tab.DIS PO PRN ×2 (13:22→13:27)
[2022-03-07] MEDS ORDERED: Acetaminophen 325 MG Tab PO PRN ×2 (13:22→13:27)
[2022-03-07] MEDS ORDERED: Magnesium Hydroxide 400 MG/5 ML Susp 30 ML Cup PO PRN ×2 (13:22→13:27)
[2022-03-07] MEDS ORDERED: Acetaminophen/HYDROcodone 325-5 MG Tab PO PRN (13:27)
[2022-03-07] MEDS ORDERED: Morphine 2 MG/ML SYRINGE IVPUSH PRN (13:27)
[2022-03-07] MEDS ORDERED: Doxycycline 100 MG in Sodium Chloride 0.9% 100 ML IV SCH (13:45)
[2022-03-07] MEDS ORDERED: methylPREDNISolone Sodium Succinate 40 MG/1 ML SDV IVPUSH SCH ×2 (13:45→14:30)
[2022-03-07] MEDS: Albuterol/Ipratropium 3.0-0.5 MG/3 ML Neb Soln NEB PRN ×2 (14:33→19:27)
[2022-03-07] MEDS: Doxycycline 100 MG in Sodium Chloride 0.9% 100 ML IV SCH (15:02)
[2022-03-07] MEDS ORDERED: Albuterol/Ipratropium 3.0-0.5 MG/3 ML Neb Soln NEB PRN (20:29)
[2022-03-07] MEDS: Melatonin 3 MG Tab PO SCH (22:19)
[2022-03-08] MEDS ORDERED: methylPREDNISolone Sodium Succinate 40 MG/1 ML SDV IVPUSH SCH (00:30)
[2022-03-08] MEDS: Doxycycline 100 MG in Sodium Chloride 0.9% 100 ML IV SCH (01:44)
[2022-03-08 06:09] LABS: ESTIMATED GFR 89 mL/min (>60)
[2022-03-08] MEDS ORDERED: predniSONE 20 MG Tab PO ONE (09:20)
[2022-03-08] MEDS: Nicotine 14 MG/24 Hr Patch TRDERM SCH (09:33)
[2022-03-08] MEDS: Albuterol/Ipratropium 3.0-0.5 MG/3 ML Neb Soln NEB SCH ×2 (14:31→20:16)
[2022-03-08] MEDS: Doxycycline 100 MG Cap PO SCH (20:26)
[2022-03-08] MEDS: Melatonin 3 MG Tab PO SCH (20:26)
[2022-03-09] MEDS: Albuterol/Ipratropium 3.0-0.5 MG/3 ML Neb Soln NEB SCH ×2 (07:05→10:38)
[2022-03-09] MEDS ORDERED: predniSONE 20 MG Tab PO SCH (08:00)
[2022-03-09] MEDS: Nicotine 14 MG/24 Hr Patch TRDERM SCH (08:13)
[2022-03-09] MEDS: Doxycycline 100 MG Cap PO SCH (09:54)
== END 2022-03-09 11:40 | disposition home or self-care (01) ==
LOC: JP.ED 11:13 → JP.MS 13:21
PROVIDERS: ADMIT Hospitalist; ATTEND Internal Medicine
DX: J20.9 Acute bronchitis, unspecified (principal); J44.1 Chronic obstructive pulmonary disease with (acute) exacerbation; J96.01 Acute respiratory failure with hypoxia; F17.210 Nicotine dependence, cigarettes, uncomplicated; E87.1 Hypo-osmolality and hyponatremia; Z79.899 Other long term (current) drug therapy; Z88.0 Allergy status to penicillin; Z88.1 Allergy status to other antibiotic agents; Z91.041 Radiographic dye allergy status; Z86.16 Personal history of COVID-19; Z90.49 Acquired absence of other specified parts of digestive tract; Z98.890 Other specified postprocedural states; Z20.822 Contact with and (suspected) exposure to COVID-19
CPT/HCPCS: 0241U; 36415; 71045; 80053; 83605; 85025; 85027; 86140; 87040; 94640; 96365; 96366; 96375; 96376; 99285; A9270; G0378; J2920; J2930; J3490; J7512; 96374; J7620

== ENCOUNTER 2023-04-05 12:24 | Inpatient (IN) | payer MEDICARE ==
[2023-04-05 13:10] LABS: BASOPHILS ABSOLUTE AUTO 0.04 K/uL (0.00-0.10); BASOPHILS PERCENT AUTO 0.8 % (0.1-1.3); EOSINOPHILS ABSOLUTE AUTO 0.27 K/uL (0.00-0.40); EOSINOPHILS PERCENT AUTO 5.3 % (0.0-5.4); HEMATOCRIT 44.9 % (38.4-49.7); IMMATURE GRAN PERCENT AUTO 0.2 % (0.0-0.7); LYMPHOCYTES ABSOLUTE AUTO 0.96 K/uL (0.8-3.3); MEAN CORPUSCULAR HEMOGLOBIN 30.9 pg (31.6-35.5); MEAN CORPUSCULAR HGB CONC 33.4 g/dL (31.6-35.5); MEAN CORPUSCULAR VOLUME 92.4 fL (81.4-99.0); MONOCYTES ABSOLUTE AUTO 0.44 K/uL (0.20-0.90); MONOCYTES PERCENT AUTO 8.7 % (3.3-12.6); NEUTROPHILS ABSOLUTE AUTO 3.34 K/uL (1.0-7.6); PLATELET COUNT,PLT 221 K/uL (130-375); RED BLOOD CELL COUNT 4.86 M/uL (4.14-5.76); WHITE BLOOD CELL COUNT,WBC 5.1 K/uL (3.2-11.0)
[2023-04-05 13:13] LABS: IMMATURE GRAN ABSOLUTE AUTO 0.01 K/uL (0.00-0.23)
[2023-04-05] MEDS ORDERED: Albuterol 0.083% 2.5 MG/3 ML Neb Soln NEB ONE ×2 (13:18→15:06)
[2023-04-05 13:32] LABS: ALANINE AMINOTRANSFERASE,ALT 21 U/L (12-78); ALBUMIN 3.3 g/dL (3.4-5.0); ALKALINE PHOSPHATASE 104 U/L (46-116); ASPARTATE AMNIOTRANSFERASE,AST 14 U/L (15-37); BILIRUBIN TOTAL 0.4 mg/dL (0.2-1.0); BLOOD UREA NITROGEN,BUN 20 mg/dL (7-18); CALCIUM 8.4 mg/dL (8.5-10.1); CARBON DIOXIDE,CO2 27 mmol/L (21-32); CHLORIDE,CL 103 mmol/L (100-108); CREATININE 1.2 mg/dL (0.8-1.3); EST CRCL DRUG DOSING (CG) 53.23 mL/min; ESTIMATED GFR 62 mL/min (>60); GLUCOSE RANDOM 100 mg/dL (74-106); PROTEIN TOTAL,TP 6.6 g/dL (6.4-8.2); SODIUM,NA 137 mmol/L (140-148)
[2023-04-05 13:37] LABS: CORONAVIRUS COVID-19 NAA NEGATIVE (NEGATIVE); INFLUENZA A NAA NEGATIVE (NEGATIVE); INFLUENZA B NAA NEGATIVE (NEGATIVE); RESPIRATORY SYNCYTIAL VIR NAA NEGATIVE (NEGATIVE)
[2023-04-05] MEDS ORDERED: methylPREDNISolone Sodium Succinate 125 MG/2 ML SDV IVPUSH ONE ×2 (15:06→23:30)
[2023-04-05 16:08] LABS: BASE EXCESS ARTERIAL 0.3 mm/L; BICARBONATE,ARTERIAL 24.9 mmol/L (22.0-26.0); CARBOXYHEMOGLOBIN 3.4 % (0.0-1.6); METHEMOGLOBIN 0.6 %; O2 SATURATION ARTERIAL 82.7 % (95.0-98.0); OXYHEMOGLOBIN 79.4 %; PO2 ARTERIAL 47.5 mmHg (75.0-100.0); TOTAL HEMOGLOBIN 15.8 g/dL (13.5-18.0)
[2023-04-05] MEDS ORDERED: Sennosides/Docusate Sodium 50-8.6 MG Tab PO PRN (17:55)
[2023-04-05] MEDS ORDERED: Melatonin 3 MG Tab PO PRN (17:55)
[2023-04-05] MEDS ORDERED: Acetaminophen 325 MG Tab PO PRN (17:55)
[2023-04-05] MEDS ORDERED: Magnesium Hydroxide 400 MG/5 ML Susp 30 ML Cup PO PRN (17:55)
[2023-04-05] MEDS ORDERED: Ondansetron 4 MG Tab.DIS PO PRN (17:55)
[2023-04-05] MEDS ORDERED: Ondansetron 4 MG/2 ML SDV IV PRN (17:55)
[2023-04-05] MEDS ORDERED: cefTRIAXone 2 GM in Sodium Chloride 0.9% 50 ML IV SCH (18:00)
[2023-04-05] MEDS: Doxycycline 100 MG Cap PO SCH (18:33)
[2023-04-05] MEDS: Lactobacillus Rhamnosus GG (Probiotic) Cap PO SCH (20:20)
[2023-04-05] MEDS: Albuterol/Ipratropium 3.0-0.5 MG/3 ML Neb Soln NEB SCH (20:21)
[2023-04-05] MEDS ORDERED: Formoterol/Mometasone 200-5 MCG 8.8 GM Inhaler IH SCH (21:00)
[2023-04-05] MEDS ORDERED: Non-Formulary Medication 1 Each (Fluticasone Propion/Salmeterol [Advair 250-50 Diskus] 1 E INH SCH (21:00)
[2023-04-06 05:43] LABS: HEMATOCRIT 46.6 % (38.4-49.7); HEMOGLOBIN 15.7 g/dL (12.9-16.9); MEAN CORPUSCULAR HEMOGLOBIN 30.9 pg (31.6-35.5); MEAN CORPUSCULAR HGB CONC 33.7 g/dL (31.6-35.5); MEAN CORPUSCULAR VOLUME 91.7 fL (81.4-99.0); RED BLOOD CELL COUNT 5.08 M/uL (4.14-5.76); WHITE BLOOD CELL COUNT,WBC 5.1 K/uL (3.2-11.0)
[2023-04-06 05:53] LABS: CALCIUM 8.4 mg/dL (8.5-10.1); EST CRCL DRUG DOSING (CG) 63.88 mL/min; POTASSIUM,K 4.5 mmol/L (3.6-5.2)
[2023-04-06 06:33] LABS: ANION GAP 14.5 mmol/L (5.0-14.0)
[2023-04-06] MEDS: Albuterol/Ipratropium 3.0-0.5 MG/3 ML Neb Soln NEB SCH ×4 (06:59→20:05)
[2023-04-06] MEDS: predniSONE 20 MG Tab PO SCH (08:08)
[2023-04-06] MEDS: Doxycycline 100 MG Cap PO SCH ×2 (08:08→20:05)
[2023-04-06] MEDS: Lactobacillus Rhamnosus GG (Probiotic) Cap PO SCH ×2 (08:08→20:05)
[2023-04-06] MEDS: Formoterol/Mometasone 200-5 MCG 8.8 GM Inhaler IH SCH ×2 (08:08→20:05)
[2023-04-06] MEDS: Tamsulosin 0.4 MG Cap.ER PO SCH (08:08)
[2023-04-06] MEDS: Nicotine 14 MG/24 Hr Patch TRDERM PRN (08:26)
[2023-04-06] MEDS: amLODIPine 5 MG Tab PO SCH (08:27)
[2023-04-06] MEDS: Cefdinir 300 MG Cap PO SCH (20:05)
[2023-04-06] MEDS: Albuterol 0.083% 2.5 MG/3 ML Neb Soln NEB PRN (23:20)
[2023-04-07] MEDS: Albuterol 0.083% 2.5 MG/3 ML Neb Soln NEB PRN ×2 (04:07→19:13)
[2023-04-07] MEDS: Formoterol/Mometasone 200-5 MCG 8.8 GM Inhaler IH SCH ×2 (07:02→21:23)
[2023-04-07] MEDS: Albuterol/Ipratropium 3.0-0.5 MG/3 ML Neb Soln NEB SCH ×4 (07:02→21:22)
[2023-04-07] MEDS: amLODIPine 5 MG Tab PO SCH (08:04)
[2023-04-07] MEDS: Tamsulosin 0.4 MG Cap.ER PO SCH (08:04)
[2023-04-07] MEDS: Doxycycline 100 MG Cap PO SCH ×2 (08:04→21:23)
[2023-04-07] MEDS: predniSONE 20 MG Tab PO SCH (08:04)
[2023-04-07] MEDS: Lactobacillus Rhamnosus GG (Probiotic) Cap PO SCH ×2 (08:04→21:22)
[2023-04-07] MEDS: Cefdinir 300 MG Cap PO SCH ×2 (08:04→21:22)
[2023-04-07] MEDS: Nicotine 14 MG/24 Hr Patch TRDERM PRN (15:47)
[2023-04-08] MEDS: Albuterol/Ipratropium 3.0-0.5 MG/3 ML Neb Soln NEB SCH ×2 (07:08→10:34)
[2023-04-08] MEDS: Formoterol/Mometasone 200-5 MCG 8.8 GM Inhaler IH SCH (07:14)
[2023-04-08] MEDS: Lactobacillus Rhamnosus GG (Probiotic) Cap PO SCH (08:58)
[2023-04-08] MEDS: Cefdinir 300 MG Cap PO SCH (08:58)
[2023-04-08] MEDS: amLODIPine 5 MG Tab PO SCH (08:58)
[2023-04-08] MEDS: Doxycycline 100 MG Cap PO SCH (08:58)
[2023-04-08] MEDS: Tamsulosin 0.4 MG Cap.ER PO SCH (08:58)
[2023-04-08] MEDS: predniSONE 20 MG Tab PO SCH (08:58)
== END 2023-04-08 12:36 | disposition home or self-care (01) | DRG 189 ==
LOC: JP.ED 12:24 → JP.2SS 17:20
PROVIDERS: ADMIT Internal Medicine; ATTEND Internal Medicine
PROC: 4A033R1 Measurement of Arterial Saturation, Peripheral, Percutaneous Approach (ICD-10-PCS; principal; 2023-04-05)
DX: J96.01 Acute respiratory failure with hypoxia (principal); J44.1 Chronic obstructive pulmonary disease with (acute) exacerbation; J44.0 Chronic obstructive pulmonary disease with (acute) lower respiratory infection; J20.9 Acute bronchitis, unspecified; J18.9 Pneumonia, unspecified organism; N40.0 Benign prostatic hyperplasia without lower urinary tract symptoms; F17.210 Nicotine dependence, cigarettes, uncomplicated; Z91.048 Other nonmedicinal substance allergy status; J44.9 Chronic obstructive pulmonary disease, unspecified; I10 Essential (primary) hypertension; Z98.890 Other specified postprocedural states; Z90.49 Acquired absence of other specified parts of digestive tract; Z11.52 Encounter for screening for COVID-19; Z20.822 Contact with and (suspected) exposure to COVID-19; Z86.16 Personal history of COVID-19; Z79.899 Other long term (current) drug therapy; Z88.1 Allergy status to other antibiotic agents; Z91.041 Radiographic dye allergy status; Z79.51 Long term (current) use of inhaled steroids
CPT/HCPCS: 0241U; 36415; 36600; 71046; 80048; 80053; 82803; 83880; 84145; 85025; 85027; 86140; 87070; 87205; 94640; 99222; 99232; 99238; 99284; A9270-GY; J0696; J2930; J3490; J7512; J7620

== ENCOUNTER 2024-02-11 11:30 | Emergency (ER) | payer MEDICARE ==
[2024-02-11] MEDS: predniSONE 20 MG Tab PO ONE (13:16)
[2024-02-11] MEDS: Albuterol/Ipratropium 3.0-0.5 MG/3 ML Neb Soln NEB ONE (13:16)
[2024-02-11 14:22] LABS: BASOPHILS ABSOLUTE AUTO 0.03 K/uL (0.00-0.10); BASOPHILS PERCENT AUTO 0.6 % (0.1-1.3); EOSINOPHILS ABSOLUTE AUTO 0.14 K/uL (0.00-0.40); EOSINOPHILS PERCENT AUTO 2.8 % (0.0-5.4); HEMATOCRIT 46.2 % (38.4-49.7); HEMOGLOBIN 15.5 g/dL (12.9-16.9); IMMATURE GRAN PERCENT AUTO 0.2 % (0.0-0.7); LYMPHOCYTES ABSOLUTE AUTO 1.01 K/uL (0.8-3.3); LYMPHOCYTES PERCENT AUTO 20.3 % (11.4-47.7); MEAN CORPUSCULAR HGB CONC 33.5 g/dL (31.6-35.5); MEAN CORPUSCULAR VOLUME 92.4 fL (81.4-99.0); MONOCYTES ABSOLUTE AUTO 0.53 K/uL (0.20-0.90); MONOCYTES PERCENT AUTO 10.6 % (3.3-12.6); NEUTROPHILS ABSOLUTE AUTO 3.26 K/uL (1.0-7.6); NEUTROPHILS PERCENT AUTO 65.5 % (40.0-78.1); PLATELET COUNT,PLT 212 K/uL (130-375)
[2024-02-11 14:23] LABS: IMMATURE GRAN ABSOLUTE AUTO 0.01 K/uL (0.00-0.23)
[2024-02-11 14:47] LABS: CORONAVIRUS COVID-19 NAA NEGATIVE (NEGATIVE); INFLUENZA A NAA NEGATIVE (NEGATIVE); INFLUENZA B NAA NEGATIVE (NEGATIVE); RESPIRATORY SYNCYTIAL VIR NAA NEGATIVE (NEGATIVE)
== END 2024-02-11 15:06 | disposition home or self-care (01) ==
LOC: JP.ED 11:30
DX: J44.1 Chronic obstructive pulmonary disease with (acute) exacerbation (principal); I10 Essential (primary) hypertension; Z90.49 Acquired absence of other specified parts of digestive tract; Z86.16 Personal history of COVID-19; Z79.899 Other long term (current) drug therapy; Z79.51 Long term (current) use of inhaled steroids; Z88.0 Allergy status to penicillin; Z88.1 Allergy status to other antibiotic agents; Z91.041 Radiographic dye allergy status
CPT/HCPCS: 0241U; 36415; 71046; 85025; 94640; 99284; 99285; J7512; J7620

== ENCOUNTER 2024-03-20 14:13 | Emergency (ER) | payer MEDICARE ==
[2024-03-20] MEDS: Sodium Chloride 0.9% 500 ML IV ONE (15:31)
[2024-03-20] MEDS: Albuterol/Ipratropium 3.0-0.5 MG/3 ML Neb Soln NEB ONE (15:33)
[2024-03-20] MEDS: Magnesium Sulfate/Water Premix 2 GM in Premix Bag 1 BAG IV ONE (15:33)
[2024-03-20] MEDS: Dexamethasone 4 MG/ML SDV IVPUSH ONE (15:33)
[2024-03-20 15:34] LABS: BASE EXCESS VENOUS 5.2 mm/L; BASOPHILS ABSOLUTE AUTO 0.05 K/uL (0.00-0.10); BASOPHILS PERCENT AUTO 0.7 % (0.1-1.3); BICARBONATE,VENOUS 30.9 mmol/L; CARBOXYHEMOGLOBIN 4.2 % (0.0-1.6); EOSINOPHILS ABSOLUTE AUTO 0.31 K/uL (0.00-0.40); EOSINOPHILS PERCENT AUTO 4.3 % (0.0-5.4); HEMATOCRIT 47.5 % (38.4-49.7); HEMOGLOBIN 15.9 g/dL (12.9-16.9); IMMATURE GRAN ABSOLUTE AUTO 0.03 K/uL (0.00-0.23); IMMATURE GRAN PERCENT AUTO 0.4 % (0.0-0.7); LYMPHOCYTES ABSOLUTE AUTO 1.31 K/uL (0.8-3.3); LYMPHOCYTES PERCENT AUTO 18.3 % (11.4-47.7); MEAN CORPUSCULAR HEMOGLOBIN 30.6 pg (31.6-35.5); MEAN CORPUSCULAR HGB CONC 33.5 g/dL (31.6-35.5); MEAN CORPUSCULAR VOLUME 91.5 fL (81.4-99.0); METHEMOGLOBIN 0.9 %; MONOCYTES ABSOLUTE AUTO 0.48 K/uL (0.20-0.90); MONOCYTES PERCENT AUTO 6.7 % (3.3-12.6); NEUTROPHILS ABSOLUTE AUTO 4.96 K/uL (1.0-7.6); NEUTROPHILS PERCENT AUTO 69.6 % (40.0-78.1); O2 SATURATION VENOUS 53.1; OXYHEMOGLOBIN 50.4 %; PCO2 VENOUS 50.2 mm/Hg; PH,VENOUS 7.406 (7.350-7.450); PLATELET COUNT,PLT 271 K/uL (130-375); RED BLOOD CELL COUNT 5.19 M/uL (4.14-5.76); TOTAL HEMOGLOBIN 16.3 g/dL (13.5-18.0); WHITE BLOOD CELL COUNT,WBC 7.1 K/uL (3.2-11.0)
[2024-03-20 16:01] LABS: ALANINE AMINOTRANSFERASE,ALT 28 U/L (12-78); ALBUMIN 3.5 g/dL (3.4-5.0); ALKALINE PHOSPHATASE 123 U/L (46-116); ANION GAP 9.9 mmol/L (5.0-14.0); ASPARTATE AMNIOTRANSFERASE,AST 21 U/L (15-37); BILIRUBIN TOTAL 0.3 mg/dL (0.2-1.0); BLOOD UREA NITROGEN,BUN 21 mg/dL (7-18); CALCIUM 8.7 mg/dL (8.5-10.1); CARBON DIOXIDE,CO2 34 mmol/L (21-32); CHLORIDE,CL 101 mmol/L (100-108); CREATININE 1.1 mg/dL (0.8-1.3); EST CRCL DRUG DOSING (CG) 55.35 mL/min; ESTIMATED GFR 69 mL/min (>60); GLUCOSE RANDOM 125 mg/dL (74-106); POTASSIUM,K 3.9 mmol/L (3.6-5.2); PRO B-TYPE NATRIUR PEPT,BNPPRO 66 pg/mL (5-450); SODIUM,NA 141 mmol/L (140-148); TROPONIN I HIGH SENSITIVITY 8.5 pg/mL (<=60.3)
[2024-03-20] MEDS ORDERED: Azithromycin 1,000 MG in Sodium Chloride 0.9% 500 ML IV ONE (16:11)
[2024-03-20 16:29] LABS: CORONAVIRUS COVID-19 NAA NEGATIVE (NEGATIVE); INFLUENZA A NAA NEGATIVE (NEGATIVE); INFLUENZA B NAA NEGATIVE (NEGATIVE); RESPIRATORY SYNCYTIAL VIR NAA NEGATIVE (NEGATIVE)
[2024-03-20] MEDS: Azithromycin 500 MG in Sodium Chloride 0.9% 250 ML IV ONE (16:33)
== END 2024-03-20 17:55 | disposition home or self-care (01) ==
LOC: JP.ED 14:13
DX: J44.1 Chronic obstructive pulmonary disease with (acute) exacerbation (principal); I10 Essential (primary) hypertension; F17.210 Nicotine dependence, cigarettes, uncomplicated; Z90.49 Acquired absence of other specified parts of digestive tract; Z86.16 Personal history of COVID-19; Z88.0 Allergy status to penicillin; Z88.1 Allergy status to other antibiotic agents; Z91.041 Radiographic dye allergy status; Z79.51 Long term (current) use of inhaled steroids; Z79.899 Other long term (current) drug therapy
CPT/HCPCS: 0241U; 36415; 71045; 80053; 82803; 83605; 83735; 83880; 84145; 84484; 85025; 94640; 96365; 96366; 96368; 96375; 99285; J0456; J1100; J3475; J7030; J7050; J7620

== ENCOUNTER 2024-06-25 08:52 | Emergency (ER) | payer MEDICARE ==
[2024-06-25] MEDS: methylPREDNISolone Sodium Succinate 40 MG/1 ML SDV IM ONE (09:28)
== END 2024-06-25 09:58 | disposition home or self-care (01) ==
LOC: JP.ED 08:52
DX: J44.1 Chronic obstructive pulmonary disease with (acute) exacerbation (principal); I10 Essential (primary) hypertension; F17.210 Nicotine dependence, cigarettes, uncomplicated; Z88.0 Allergy status to penicillin; Z91.041 Radiographic dye allergy status; Z88.1 Allergy status to other antibiotic agents; Z79.51 Long term (current) use of inhaled steroids; Z79.899 Other long term (current) drug therapy
CPT/HCPCS: 96372; 99283; 99284; J2919

== ENCOUNTER 2024-08-30 14:25 | Emergency (ER) | payer MEDICARE ==
[2024-08-30] MEDS: Albuterol/Ipratropium 3.0-0.5 MG/3 ML Neb Soln NEB ONE (15:00)
[2024-08-30] MEDS: methylPREDNISolone Sodium Succinate 40 MG/1 ML SDV IM ONE (15:00)
== END 2024-08-30 15:44 | disposition home or self-care (01) ==
LOC: JP.ED 14:25
DX: J44.1 Chronic obstructive pulmonary disease with (acute) exacerbation (principal); I10 Essential (primary) hypertension; F17.210 Nicotine dependence, cigarettes, uncomplicated; Z79.899 Other long term (current) drug therapy; Z88.0 Allergy status to penicillin; Z88.1 Allergy status to other antibiotic agents; Z91.041 Radiographic dye allergy status
CPT/HCPCS: 94640; 96372; 99284; A9270; J2919

== ENCOUNTER 2024-10-31 07:35 | Emergency (ER) | payer MEDICARE ==
[2024-10-31 08:19] LABS: BASOPHILS ABSOLUTE AUTO 0.02 K/uL (0.00-0.10); BASOPHILS PERCENT AUTO 0.4 % (0.1-1.3); EOSINOPHILS ABSOLUTE AUTO 0.09 K/uL (0.00-0.40); EOSINOPHILS PERCENT AUTO 1.7 % (0.0-5.4); IMMATURE GRAN ABSOLUTE AUTO 0.02 K/uL (0.00-0.23); IMMATURE GRAN PERCENT AUTO 0.4 % (0.0-0.7); LYMPHOCYTES ABSOLUTE AUTO 0.82 K/uL (0.8-3.3); LYMPHOCYTES PERCENT AUTO 15.6 % (11.4-47.7); MONOCYTES ABSOLUTE AUTO 0.58 K/uL (0.20-0.90); MONOCYTES PERCENT AUTO 11.0 % (3.3-12.6); NEUTROPHILS ABSOLUTE AUTO 3.74 K/uL (1.0-7.6); NEUTROPHILS PERCENT AUTO 70.9 % (40.0-78.1); PLATELET COUNT,PLT 192 K/uL (130-375); RED BLOOD CELL COUNT 4.90 M/uL (4.14-5.76); WHITE BLOOD CELL COUNT,WBC 5.3 K/uL (3.2-11.0)
[2024-10-31] MEDS: methylPREDNISolone Sodium Succinate 125 MG/2 ML SDV IVPUSH ONE (08:35)
[2024-10-31 08:40] LABS: A/G RATIO 1.1 (1.2-2.2); ALANINE AMINOTRANSFERASE,ALT 26 U/L (12-78); ASPARTATE AMNIOTRANSFERASE,AST 17 U/L (15-37); BILIRUBIN TOTAL 0.4 mg/dL (0.2-1.0); BLOOD UREA NITROGEN,BUN 18 mg/dL (7-18); CARBON DIOXIDE,CO2 29 mmol/L (21-32); CHLORIDE,CL 100 mmol/L (100-108); CREATININE 1.0 mg/dL (0.8-1.3); EST CRCL DRUG DOSING (CG) 61.85 mL/min; ESTIMATED GFR 77 mL/min (>60); GLUCOSE RANDOM 105 mg/dL (74-106); POTASSIUM,K 4.3 mmol/L (3.6-5.2); PROTEIN TOTAL,TP 6.6 g/dL (6.4-8.2); SODIUM,NA 134 mmol/L (140-148)
== END 2024-10-31 09:48 | disposition home or self-care (01) ==
LOC: JP.ED 07:35
DX: J44.1 Chronic obstructive pulmonary disease with (acute) exacerbation (principal); I10 Essential (primary) hypertension; F17.200 Nicotine dependence, unspecified, uncomplicated; Z90.49 Acquired absence of other specified parts of digestive tract; Z88.0 Allergy status to penicillin; Z88.1 Allergy status to other antibiotic agents; Z91.041 Radiographic dye allergy status; Z79.51 Long term (current) use of inhaled steroids; Z79.899 Other long term (current) drug therapy
CPT/HCPCS: 36415; 71046; 71046-26; 80053; 83880; 85025; 94640; 96374; 99284; 99285-25; A9270-GY; J2919

== ENCOUNTER 2025-01-18 08:51 | Emergency (ER) | payer MEDICARE ==
[2025-01-18 10:08] LABS: BASOPHILS ABSOLUTE AUTO 0.04 K/uL (0.00-0.10); BASOPHILS PERCENT AUTO 0.7 % (0.1-1.3); EOSINOPHILS ABSOLUTE AUTO 0.24 K/uL (0.00-0.40); EOSINOPHILS PERCENT AUTO 4.1 % (0.0-5.4); IMMATURE GRAN PERCENT AUTO 0.3 % (0.0-0.7); LYMPHOCYTES ABSOLUTE AUTO 1.28 K/uL (0.8-3.3); LYMPHOCYTES PERCENT AUTO 22.0 % (11.4-47.7); MONOCYTES ABSOLUTE AUTO 0.56 K/uL (0.20-0.90); MONOCYTES PERCENT AUTO 9.6 % (3.3-12.6); NEUTROPHILS ABSOLUTE AUTO 3.68 K/uL (1.0-7.6); NEUTROPHILS PERCENT AUTO 63.3 % (40.0-78.1); PLATELET COUNT,PLT 221 K/uL (130-375); RED BLOOD CELL COUNT 5.25 M/uL (4.14-5.76); WHITE BLOOD CELL COUNT,WBC 5.8 K/uL (3.2-11.0)
[2025-01-18 10:09] LABS: IMMATURE GRAN ABSOLUTE AUTO 0.02 K/uL (0.00-0.23)
[2025-01-18 10:29] LABS: A/G RATIO 1.1 (1.2-2.2); ALANINE AMINOTRANSFERASE,ALT 22 U/L (12-78); ASPARTATE AMNIOTRANSFERASE,AST 20 U/L (15-37); BILIRUBIN TOTAL 0.3 mg/dL (0.2-1.0); BLOOD UREA NITROGEN,BUN 18 mg/dL (7-18); CARBON DIOXIDE,CO2 29 mmol/L (21-32); CHLORIDE,CL 101 mmol/L (100-108); CREATININE 1.0 mg/dL (0.8-1.3); EST CRCL DRUG DOSING (CG) 61.85 mL/min; ESTIMATED GFR 77 mL/min (>60); GLUCOSE RANDOM 107 mg/dL (74-106); POTASSIUM,K 4.3 mmol/L (3.6-5.2); PROTEIN TOTAL,TP 6.8 g/dL (6.4-8.2); SODIUM,NA 136 mmol/L (140-148)
[2025-01-18] MEDS: Albuterol 0.083% 2.5 MG/3 ML Neb Soln NEB ONE (10:33)
[2025-01-18] MEDS: methylPREDNISolone Sodium Succinate 125 MG/2 ML SDV IVPUSH ONE (10:33)
[2025-01-18] MEDS ORDERED: Lidocaine 2% Jelly 10 ML Urojet MUCMEM ONE (10:44)
== END 2025-01-18 12:27 | disposition home or self-care (01) ==
LOC: JP.ED 08:51
DX: J44.1 Chronic obstructive pulmonary disease with (acute) exacerbation (principal); I10 Essential (primary) hypertension; F17.200 Nicotine dependence, unspecified, uncomplicated; Z90.49 Acquired absence of other specified parts of digestive tract; Z88.1 Allergy status to other antibiotic agents; Z88.0 Allergy status to penicillin; Z91.041 Radiographic dye allergy status; Z79.899 Other long term (current) drug therapy
CPT/HCPCS: 36415; 71045; 80053; 85025; 94640; 96374; 99285; A9270; J2919

== ENCOUNTER 2025-03-07 13:38 | Emergency (ER) | payer MEDICARE ==
[2025-03-07] MEDS: methylPREDNISolone Sodium Succinate 125 MG/2 ML SDV IM ONE (17:36)
[2025-03-07 17:41] LABS: BASE EXCESS VENOUS 1.6 mm/L; BICARBONATE,VENOUS 27.7 mmol/L; O2 SATURATION VENOUS 35.2; OXYHEMOGLOBIN 33.7 %; PCO2 VENOUS 51.1 mm/Hg; PH,VENOUS 7.354 (7.350-7.450); TOTAL HEMOGLOBIN 16.5 g/dL (13.5-18.0)
[2025-03-07 17:42] LABS: BASOPHILS ABSOLUTE AUTO 0.05 K/uL (0.00-0.10); BASOPHILS PERCENT AUTO 0.9 % (0.1-1.3); EOSINOPHILS ABSOLUTE AUTO 0.23 K/uL (0.00-0.40); EOSINOPHILS PERCENT AUTO 4.3 % (0.0-5.4); IMMATURE GRAN PERCENT AUTO 0.4 % (0.0-0.7); LYMPHOCYTES ABSOLUTE AUTO 1.56 K/uL (0.8-3.3); LYMPHOCYTES PERCENT AUTO 28.9 % (11.4-47.7); MONOCYTES ABSOLUTE AUTO 0.49 K/uL (0.20-0.90); MONOCYTES PERCENT AUTO 9.1 % (3.3-12.6); NEUTROPHILS ABSOLUTE AUTO 3.05 K/uL (1.0-7.6); NEUTROPHILS PERCENT AUTO 56.4 % (40.0-78.1); PLATELET COUNT,PLT 252 K/uL (130-375); RED BLOOD CELL COUNT 5.12 M/uL (4.14-5.76); WHITE BLOOD CELL COUNT,WBC 5.4 K/uL (3.2-11.0)
[2025-03-07 17:43] LABS: IMMATURE GRAN ABSOLUTE AUTO 0.02 K/uL (0.00-0.23); PO2 VENOUS 25.3 mm/Hg
[2025-03-07 18:12] LABS: A/G RATIO 1.1 (1.2-2.2); ALANINE AMINOTRANSFERASE,ALT 26 U/L (12-78); ASPARTATE AMNIOTRANSFERASE,AST 18 U/L (15-37); BILIRUBIN TOTAL 0.4 mg/dL (0.2-1.0); BLOOD UREA NITROGEN,BUN 19 mg/dL (7-18); CARBON DIOXIDE,CO2 29 mmol/L (21-32); CHLORIDE,CL 102 mmol/L (100-108); CREATININE 1.2 mg/dL (0.8-1.3); EST CRCL DRUG DOSING (CG) 51.54 mL/min; ESTIMATED GFR 62 mL/min (>60); GLUCOSE RANDOM 101 mg/dL (74-106); POTASSIUM,K 4.1 mmol/L (3.6-5.2); PROTEIN TOTAL,TP 6.9 g/dL (6.4-8.2); SODIUM,NA 139 mmol/L (140-148); TROPONIN I HIGH SENSITIVITY 8.9 pg/mL (<=60.3)
== END 2025-03-07 18:43 | disposition home or self-care (01) ==
LOC: JP.ED 13:38
DX: J44.1 Chronic obstructive pulmonary disease with (acute) exacerbation (principal); I10 Essential (primary) hypertension; F17.200 Nicotine dependence, unspecified, uncomplicated; Z90.49 Acquired absence of other specified parts of digestive tract; Z88.0 Allergy status to penicillin; Z88.1 Allergy status to other antibiotic agents; Z91.041 Radiographic dye allergy status; Z79.899 Other long term (current) drug therapy
CPT/HCPCS: 36415; 71045; 80053; 82803; 84484; 85025; 86140; 93005; 94640; 96372; 99285; A9270; J2919